=== PATIENT | female | born 1980 | race Caucasian/White ===

== ENCOUNTER 2017-11-10 11:20 | Emergency (ER) | payer OTHER ==
[~2017-11-10] VITALS: Ht 157.5 cm; Wt 86.6 kg
[~2017-11-10 11:20] MED LIST: Advil PM PO; ESCITALOPRAM OX10 MG PO; ESZOPICLONE1 MG PO; HYDROXYZINE PAM25 MG PO; JUNEL1 EACH PO; NERVE TONIC PO; PERCOCET 5/31 TABLET PO; Percocet 5/325,Endoc PO; VALERIAN ROOT PO; ZOFRAN ODT4 MG PO
[2017-11-10 12:37] LABS: HEMATOCRIT 43.7 % (36.0-46.0); HEMOGLOBIN 15.4 G/DL (11.9-15.5); MCH 30.5 PG (29.0-34.0); MCHC 35.2 G/DL (30.0-36.0); MCV 86.5 FL (83-99); PLATELET COUNT 308 K/uL (156-360); RBC DIS.WIDTH-CV 11.8 % (11.8-14.6); RED BLOOD COUNT 5.05 M/uL (3.80-5.20); WHITE BLOOD COUNT 8.5 K/uL (4.1-10.2)
[2017-11-10 12:49] LABS: CHLORIDE 106 mEq/L (99-109); POTASSIUM 3.5 mEq/L (3.7-5.4); SODIUM 141 mEq/L (136-147)
[2017-11-10 12:51] LABS: GLUCOSE 151 mg/dL (70-99)
[2017-11-10 12:55] LABS: CREATININE 0.9 mg/dL (0.6-1.3); GFR ESTIMATE (CALCULATED) > 59 mL/min/; UREA NITROGEN (BUN) 8 mg/dL (9-23)
[2017-11-10 13:05] LABS: QUANTITATIVE HCG < 4.0 MIU/ML
[2017-11-10 13:57] LABS: APPEARANCE CLOUDY ((CLEAR)); BILIRUBIN NEGATIVE; BLOOD SMALL; COLOR YELLOW ((YELLOW)); GLUCOSE (STRIP) NEGATIVE; KETONES 20; LEUKOCYTES LARGE; NITRITE NEGATIVE; PROTEIN (STRIP) 30; SPECIFIC GRAVITY 1.025 (1.000-1.030); UROBILINOGEN 0.2 MG/DL (0.2-1.0)
[2017-11-10 14:15] LABS: BACTERIA 1+ /HPF; EPITHELIAL CELLS 2+ /HPF; MUCUS 1+ /LPF; UCUL ADDED? YES; WHITE BLOOD CELLS 15-20 /HPF (0-5)
[2017-11-10] MEDS ORDERED: BACTRIM,SEPT1 TABLET PO (15:01)
[2017-11-10] MEDS ORDERED: ZOFRAN4 MG PO (15:01)
[2017-11-10] MEDS ORDERED: PERCOCET 5/31 TABLET PO (15:01)
[2017-11-10 15:10] VITALS: BP 125/71
== END 2017-11-10 15:11 | disposition home or self-care (01) ==
LOC: EME 11:20
DX: N13.2 Hydronephrosis with renal and ureteral calculous obstruction (principal); N39.0 Urinary tract infection, site not specified; Z90.49 Acquired absence of other specified parts of digestive tract; Z86.73 Personal history of transient ischemic attack (TIA), and cerebral infarction without residual deficits
CPT/HCPCS: 74176; 80048; 81003; 84702; 85027; 87086; 99281; 99284; J1885